=== PATIENT | female | born 1985 | race Caucasian/White ===

== ENCOUNTER 2020-10-13 17:07 | Emergency (ER) | payer OTHER ==
[~2020-10-13] VITALS: Ht 157.5 cm; Wt 77.8 kg
[2020-10-13] MEDS ORDERED: KETOROLAC 30 MG/ML 1ML VIAL IV ONE (17:45)
[2020-10-13 18:06] LABS: BASO % 0.3 % (0.0-1.0); EOS % 0.5 % (0.0-3.0); HEMOGLOBIN 14.3 g/dl (12.0-15.5); LYMPH # 2.2 10^3/uL (1.5-5.0); LYMPH % 27.9 % (24.0-44.0); MEAN CORPUSCULAR HGB CONC 34.9 g/dl (32.0-36.5); MEAN CORPUSCULAR VOLUME 88.7 fl (80.0-96.0); MONO # 0.5 10^3/uL (0.0-0.8); MONO % 6.7 % (2.0-8.0); NEUTROPHILS % 64.2 % (36.0-66.0); PLATELET COUNT, AUTOMATED 249 10^3/uL (150-450); RED BLOOD COUNT 4.62 10^6/uL (4.00-5.40); WHITE BLOOD COUNT 7.8 10^3/uL (4.0-10.0)
[2020-10-13 18:33] LABS: BILIRUBIN,DIRECT 0.2 MG/DL (0.0-0.2); BILIRUBIN,TOTAL 0.7 MG/DL (0.2-1.0); TOTAL PROTEIN 7.6 GM/DL (6.4-8.2)
--- NOTE | 2020-10-13 20:01 | REPVR ---
PROCEDURE INFORMATION: Exam: US Pelvis Complete, Transabdominal and US Pelvis, Transvaginal Exam date and time: 10/13/2020 7:16 PM Age: 35 years old Clinical indication: Pelvic pain; Additional info: Right pelvic pain; HX of cyst; R/O torsion TECHNIQUE: Imaging protocol: Real-time transabdominal and transvaginal pelvic ultrasound (complete) with image documentation. Transvaginal imaging was used for better evaluation of the endometrium, adnexa, and/or cervix. COMPARISON: No relevant prior studies available. FINDINGS: Uterus/cervix: The uterus measures 8.2 cm x 4.5 cm x 5.4 cm. No intramural mass. The endometrial stripe is homogeneous and measures 11 mm in thickness. Right adnexa: The patient is status post right oophorectomy. No right adnexal mass. Left adnexa: The left ovary measures 5.1 cm x 2.8 cm x 4.3 cm. There is a complex, partially cystic and partially solid mass with areas of increased echogenicity and posterior shadowing measuring 4.3 cm x 2.9 cm x 3.7 cm within the left ovary. Color Doppler blood flow to the left ovary is documented. Duplex Doppler arterial waveforms are documented within the left ovary. No venous Doppler waveforms were recorded. Intraperitoneal space: No free intraperitoneal fluid. Urinary bladder: The urinary bladder is nearly completely empty and not adequately visualized. IMPRESSION: 1. Normal uterus. 2. Status post right oophorectomy. 3. No definite evidence of ovarian torsion. 4. Complex left ovarian mass. The findings raise the suspicion for a ovarian dermoid. Further evaluation with CT or MRI is recommended. Electronically signed by: Mickey Yepez On 10/13/2020 20:00:54 PM
[2020-10-13 21:03] VITALS: BP 132/78
--- NOTE | 2020-10-15 13:24 | ED PDOC ---
Post-Departure Follow-Up dr mally garcia faxed foral report of pelvic us for fu Chuck Dobson MD Oct 15, 2020 13:24
== END 2020-10-13 21:03 | disposition home or self-care (01) ==
LOC: M ED 17:07
DX: N83.202 Unspecified ovarian cyst, left side (principal); Z90.721 Acquired absence of ovaries, unilateral; Z87.42 Personal history of other diseases of the female genital tract
CPT/HCPCS: 76830; 76856; 80047; 80076; 81001; 83690; 84702; 85025; 93976; 96374; 99284; J1885